=== PATIENT | female | born 1945 | race Caucasian/White ===

== ENCOUNTER → 2017-11-04 | Outpatient (CLI) | payer OTHER | LOC: RAD 13:08 | PROVIDERS: ATTEND Internal Medicine Cardiovascular Disease | DX: I10 Essential (primary) hypertension (principal); E78.4 Other hyperlipidemia | CPT/HCPCS: 93306 ==

== ENCOUNTER → 2017-11-04 | Outpatient (CLI) | payer SELFPAY ==
--- NOTE | 2017-11-05 10:58 | CT ---
CT Calcium Score Clinical information: 72-year-old female for coronary artery disease risk assessment. Comparison: None. ECG Gating: Prospective Scan range: Pulmonary artery bifurcation to diaphragm. Findings: Examination quality: Good. Limitation: None. Total calcium score: 297 Total volume score: 234 mm3 Percentile: 50-75 % Artery scores Left main coronary artery: 81 Left anterior descending artery: 158 Left circumflex artery: 2 Right coronary artery: 56 Other findings: Cardiac chambers: Unremarkable. Cardiac valves: [id number] calcification of the aortic annulus as well as the coronary arteries . Thoracic aorta: [id number] calcific atherosclerotic plaque. Lungs: Unremarkable. Upper abdomen: Moderate hiatal hernia. Impression: Total calcium score of 297. This implies definite, moderate atherosclerotic plaque as seen. Risk of c oronary artery disease is highly likely with moderate risk of cardiovascular event within the next 5 years. Reported By:
== END ==
LOC: RAD 13:14
PROVIDERS: ATTEND Internal Medicine
DX: Z13.6 Encounter for screening for cardiovascular disorders (principal)